=== PATIENT | female | born 1985 | race Caucasian/White ===

== ENCOUNTER 2024-09-19 05:55 | Day surgery (SDC) | payer OTHER ==
[2024-09-19] MEDS ORDERED: PROPOFOL 20 ML ONE (09:41)
[2024-09-19] MEDS ORDERED: MIDAZOLAM HCL 2 MG/2 ML SINGLE DOSE VIAL ONE (09:41)
[2024-09-19] MEDS ORDERED: ceFAZolin SODIUM 1 GM VIAL ONE (09:42)
[2024-09-19] MEDS ORDERED: LIDOCAINE HCL/PF 2% SDV 5ML VIAL ONE (09:42)
[2024-09-19] MEDS ORDERED: ONDANSETRON 4 MG/2 ML VIAL ONE (09:42)
[2024-09-19] MEDS ORDERED: ROCURONIUM BROMIDE 50 MG/5 ML SYRINGE ONE (09:43)
[2024-09-19] MEDS ORDERED: ONDANSETRON 4 MG/2 ML VIAL IVPUSH PRN (09:48)
[2024-09-19] MEDS ORDERED: DEXAMETHASONE SOD PHOSPHATE 4 MG/1 ML VIAL ONE (10:32)
[2024-09-19] MEDS: ceFAZolin SODIUM 1 GM VIAL IVPB ONE (10:32)
[2024-09-19] MEDS ORDERED: METHYLENE BLUE 50 MG/10 ML AMPUL ONE (10:37)
[2024-09-19] MEDS ORDERED: HYDROmorphone HCl 2 MG/ML VIAL ONE (10:43)
[2024-09-19] MEDS ORDERED: ROCURONIUM BROMIDE 50 MG/5 ML VIAL ONE (10:48)
[2024-09-19] MEDS ORDERED: SUGAMMADEX SODIUM 200 MG/2 ML VIAL ONE (12:06)
[2024-09-19] MEDS ORDERED: KETOROLAC TROMETHAMINE 30 MG/1 ML VIAL ONE (12:09)
[2024-09-19] MEDS: BUPIVACAINE HCL/PF 0.25% (2.5MG/ML) 10 ML VIAL IJ ONE (12:35)
[2024-09-19] MEDS ORDERED: ACETAMINOPHEN INJECTION 100 ML ONE (13:05)
[2024-09-19] MEDS: ACETAMINOPHEN 1000 MG/100 ML BAG IVPB ONE (13:06)
[2024-09-19] MEDS: LACTATED RINGERS SOLUTION 1,000 ML IV SCH (13:08)
[2024-09-19] MEDS: CEFAZOLIN 2 GM in DEXTROSE 5%-WATER - 100 ML IVPB ONE (13:31)
[2024-09-19] MEDS: TRANEXAMIC ACID 1000 MG/10 ML VIAL IVPUSH ONE (13:31)
[2024-09-19] MEDS ORDERED: ACETAMINOPHEN 500 MG TABLET (FP) PO PRN ×2 (13:53→17:10)
[2024-09-19] MEDS ORDERED: IBUPROFEN 600 MG TABLET (FP) PO PRN (13:53)
[2024-09-19 15:55] VITALS: RESP 18
[2024-09-19] MEDS: oxyCODONE HCL 5 MG TABLET PO PRN ×2 (16:25→21:15)
[2024-09-19] MEDS: CEFAZOLIN 2 GM/D5W 2 GM/50 ML ML IVPB SCH (18:36)
[2024-09-19] MEDS: IBUPROFEN 600 MG TABLET (FP) PO PRN (18:58)
[2024-09-19] MEDS: ONDANSETRON 4 MG/2 ML VIAL IVPUSH ONE (20:50)
[2024-09-20] MEDS: oxyCODONE HCL 5 MG TABLET PO PRN (01:16)
[2024-09-20] MEDS: ONDANSETRON 4 MG/2 ML VIAL IVPUSH ONE (02:05)
[2024-09-20 08:37] LABS: BASO % 0.5 % (0-2.0); EOS % 0.5 % (0-4.5); HEMATOCRIT 34.1 % (32.4-45.2); HEMOGLOBIN 11.4 GM/dL (10.7-15.3); LYMPH % 16.2 % (8-40); MCH 31.4 pg (25.7-33.7); MCHC 33.3 g/dl (32.0-36.0); MEAN CELL VOLUME 94.3 fl (80-96); MEAN PLT VOLUME 7.5 fl (7.5-11.1); NEUT % 72.8 % (42.8-82.8); PLATELET COUNT 264 10^3/uL (134-434); RBC 3.62 M/mm3 (3.60-5.2); RDW 12.6 % (11.6-15.6); WHITE BLOOD COUNT 8.9 K/mm3 (4.0-10.0)
[2024-09-20 09:01] LABS: POTASSIUM 3.6 mmol/L (3.5-5.1)
[2024-09-20 09:05] LABS: BLOOD UREA NITROGEN 7.6 mg/dL (7-18); CALCIUM 8.9 mg/dL (8.5-10.1)
[2024-09-20 09:08] LABS: CREATININE 0.7 mg/dL (0.55-1.3)
[2024-09-20 20:15] VITALS: BP 117/80; PULSE 88; TEMP 98.2
== END 2024-09-20 20:37 | disposition home or self-care (01) ==
LOC: JASUSAT 05:55 → EDSTATUS 12:30 → J8W 15:30 → JASUSAT 09-20 20:37
PROVIDERS: ATTEND Obstetrics & Gynecology
PROC: 0UT74ZZ Resection of Bilateral Fallopian Tubes, Percutaneous Endoscopic Approach (ICD-10-PCS; 2024-09-19)
PROC: 0TJB8ZZ Inspection of Bladder, Via Natural or Artificial Opening Endoscopic (ICD-10-PCS; 2024-09-19)
PROC: 0UT94ZZ Resection of Uterus, Percutaneous Endoscopic Approach (ICD-10-PCS; principal; 2024-09-19 09:30)
DX: D25.9 Leiomyoma of uterus, unspecified (principal); N94.6 Dysmenorrhea, unspecified; N80.00 Endometriosis of the uterus, unspecified
CPT/HCPCS: 36415; 80048; 81025; 85025; 86850; 86900; 86901; 88307-TC; 94760; J0131; Q9968